=== PATIENT | male | born 1970 | race Caucasian/White ===

== ENCOUNTER 2023-12-21 07:05 | Day surgery (SDC) | payer BC, OTHER ==
[~2023-12-21 07:05] MED LIST: Sodium Chloride 0.9% 10 ML Syringe FLUSH PRN
[2023-12-21] MEDS ORDERED: Lidocaine 1% 5 ML VIAL INJECT ONE (07:06)
[2023-12-21] MEDS ORDERED: Glycopyrrolate 0.2 MG/ML SDV ONE (07:48)
[2023-12-21] MEDS ORDERED: Propofol 200 MG/20 ML SDV ONE (07:48)
[2023-12-21] MEDS ORDERED: Midazolam 1 MG/ML 2 ML SDV ONE (07:48)
[2023-12-21] MEDS: Sodium Chloride 0.9% 1,000 ML IV SCH (07:48)
== END 2023-12-21 10:22 | disposition home or self-care (01) ==
LOC: KA.SDS 07:05
PROVIDERS: ATTEND Family Medicine
DX: K29.50 Unspecified chronic gastritis without bleeding (principal); B96.81 Helicobacter pylori [H. pylori] as the cause of diseases classified elsewhere; K29.80 Duodenitis without bleeding; K21.00 Gastro-esophageal reflux disease with esophagitis, without bleeding; I12.9 Hypertensive chronic kidney disease with stage 1 through stage 4 chronic kidney disease, or unspecified chronic kidney disease; E11.22 Type 2 diabetes mellitus with diabetic chronic kidney disease; N18.9 Chronic kidney disease, unspecified; Z79.84 Long term (current) use of oral hypoglycemic drugs; Z79.899 Other long term (current) drug therapy; Z88.8 Allergy status to other drugs, medicaments and biological substances
CPT/HCPCS: 00731; 82947; J1596; J2250; J2704; J3490; J7030